=== PATIENT | female | born 1990 | race Caucasian/White ===

== ENCOUNTER 2017-04-15 08:40 | Emergency (ER) | payer OTHER ==
[~2017-04-15] VITALS: Ht 175.3 cm; Wt 65.9 kg
[~2017-04-15 08:40] MED LIST: BIRTH CONTROL PILLS
[2017-04-15 08:42] VITALS: BP 127/75; PULSE 77; TEMP 98.2
[2017-04-15] MEDS ORDERED: JUNEL FE 1/20 21 TAB PO (08:45)
[2017-04-15] MEDS ORDERED: ATARAX 25MG25 MG/TAB PO (09:19)
[2017-04-15] MEDS ORDERED: PREDNISONE20 MG PO (09:19)
== END 2017-04-15 10:06 | disposition home or self-care (01) ==
LOC: COL.ER 08:40
DX: L25.9 Unspecified contact dermatitis, unspecified cause (principal)
CPT/HCPCS: J7512